=== PATIENT | female | born 1980 | race Two or more races ===

== ENCOUNTER 2016-09-11 17:51 | Emergency (ER) | payer MEDICAID ==
[~2016-09-11] VITALS: Ht 165.1 cm; Wt 79.0 kg
[~2016-09-11 17:51] MED LIST: ALPR1TAB2 PO
[2016-09-11 18:09] VITALS: Ht 165.1 cm; Wt 79.0 kg
[2016-09-11] MEDS ORDERED: IBUPROFEN 800 MG TAB PO ONE (19:00)
--- NOTE | 2016-09-11 19:29 | RADRPT ---
PROCEDURE: Shoulder x-ray CLINICAL INDICATION: Pain TECHNIQUE: Left shoulder 3 views COMPARISON: None FINDINGS: 3 views of the left shoulder demonstrate no displaced fracture. The humeral head articulates anatom ically with the glenoid fossa. The acromioclavicular articulation is within normal limits. Bones a re normally mineralized. Soft tissues are unremarkable. IMPRESSION: No acute fracture dislocation No significant degenerate change RPTAT: HH .Conner Jones MD, Date Time Electronically viewed and signed by .Conner Jones MD, on 09/11/2016 19:29 .W/
--- NOTE | 2016-09-11 19:35 | ERD ---
ER Documentation Chief Complaint Date/Time DATE: 09/11/16 TIME: 19:32 Chief Complaint left arm pain x 4 days HPI This is a 36-year-old female presents to the emergency room for evaluation of left arm pain for the past 4 days. She states it is worse with movement and describes her pain as achy pain. The patient denies any chest pain, shortness of breath or palpitations associated with this. She came to the emergency room for evaluation and denies any numbness or tingling or relieving factors for her pain. ROS All systems reviewed and are negative except as per history of present illness. Medications Home Meds Active Scripts Alprazolam* (Xanax*) 1 Mg Tab, 1 MG PO Q8H Y for ANXIETY, #20 TAB Prov:CHELLE BRUNNER NP 11/30/15 Reported Medications [none] Unknown Strength No Conflict Check 11/30/15 Allergies Allergies: Coded Allergies: No Known Drug Allergies (Verified Allergy, Mild, 04/05/09) PMhx/Soc Medical and Surgical Hx: pt denies Medical Hx History of Surgery: Yes (TUBAL LIGATION) Anesthesia Reaction: No Hx Neurological Disorder: No Hx Respiratory Disorders: No Hx Cardiac Disorders: No Hx Psychiatric Problems: No Hx Miscellaneous Medical Probl: No Hx Alcohol Use: Yes (OCCASIONAL) Hx Substance Use: No Hx Tobacco Use: No Smoking Status: Never smoker Physical Exam Vitals Vital Signs Date Time Temp Pulse Resp B/P Pulse Ox O2 Delivery O2 Flow Rate FiO2 09/11/16 18:09 98.3 90 18 140/85 99 Physical Exam Const: No acute distress Head: Atraumatic Eyes: Normal Conjunctiva ENT: Normal External Ears, Nose and Mouth. Neck: Full range of motion..~ No meningismus. Resp: Clear to auscultation bilaterally Cardio: Regular rate and rhythm, no murmurs Abd: Soft, non tender, non distended. Normal bowel sounds Skin: No petechiae or rashes Back: No midline or flank tenderness Ext: No cyanosis, or edema Musculoskeletal: Tenderness to palpation over the left deltoid Neur: Awake and alert Psych: Normal Mood and Affect Results 24 hrs Current Medications Medications (Trade) Dose Ordered Sig/David Route PRN Reason Start Time Stop Time Status Last Admin Dose Admin Ibuprofen (Motrin) 800 mg ONCE ONCE PO 5/18/17 19:00 09/11/16 19:01 DC 09/11/16 19:14 Procedures/MDM EKG: Rate/Rhythm: [Normal Sinus Rhythm] QRS, ST, T-waves: [No changes consistent w/ acute ischemia] Impression: [No evidence of ischemia or arrhythmia] X-ray Shoulder 3V Interpreted by me: Bones: [No fracture] Joints: [No dislocation] Foreign body: [None] This 36-year-old female presents to the emergency room for evaluation of left- sided shoulder pain. When I evaluated this patient she was hemodynamically stable, she was not hypoxic in no respiratory distress. I was able to palpate her left shoulder which did elicit the same pain that she was complaining about. EKG was obtained which shows normal sinus rhythm. X-ray does not reveal any acute fractures. I do feel this patient's symptoms are musculoskeletal in nature she is not complaining of any chest pain or any pain is radiating to her back. My suspicion for pulmonary embolism is low at this time. The patient has a heart score of 0 and will be discharged home with a prescription for Motrin for left shoulder pain. Departure Diagnosis: Primary Impression: Left shoulder pain Condition: Stable NADIYA PADRON DO September 11, 2016 19:35
[2016-09-11] MEDS ORDERED: IBUP800T25 PO (19:36)
== END 2016-09-11 19:44 | disposition home or self-care (01) ==
LOC: FTE 17:51
DX: M25.512 Pain in left shoulder (principal)
CPT/HCPCS: 73030; 93005; Z7502; Z7610

== ENCOUNTER 2017-02-12 09:15 | Emergency (ER) | payer MEDICAID ==
[~2017-02-12] VITALS: Ht 162.6 cm; Wt 78.0 kg
[~2017-02-12 09:15] MED LIST changes: +IBUP800T25 PO
[2017-02-12 09:21] VITALS: Ht 162.6 cm; Wt 78.0 kg
[2017-02-12] MEDS ORDERED: KETOROLAC 30 MG INJ IM STA (09:50)
[2017-02-12] MEDS ORDERED: HYDROCODONE/APAP (5/325) TAB PO ONE (10:00)
[2017-02-12] MEDS ORDERED: IBUP-1542 PO (12:33)
[2017-02-12] MEDS ORDERED: BACL10TA PO (12:33)
[2017-02-12 12:40] VITALS: BP 128/78; PULSE 66; RESP 18
--- NOTE | 2017-02-12 14:47 | ERD ---
ER Documentation Chief Complaint Chief Complaint lower back pain since yesterday, denies injury HPI This is a 37-year-old female presenting to emergency department for right-sided lower back pain starting last night. Patient rates pain 9/10 to right lower back that radiates down right leg. No injury or trauma to back. No heavy lifting. No flank pain. No chest pain. No shortness of breath or difficulty breathing. No chest pressure or palpitations. No nausea, vomiting or diarrhea. No dysuria or hematuria. 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 ROS All systems reviewed and are negative except as per history of present illness. Medications Home Meds Active Scripts Ibuprofen* (Motrin*) 600 Mg Tab, 600 MG PO Q6, #10 TAB Prov:JULY ANAYA NP 02/12/17 Baclofen* (Baclofen*) 10 Mg Tablet, 10 MG PO Q8, #10 TAB Prov:JULY ANAYA NP 02/12/17 Ibuprofen* (Motrin*) 800 Mg Tab, 800 MG PO Q6H Y for PAIN AND OR ELEVATED TEMP, #30 TAB Prov:NADIYA PADRON DO 09/11/16 Alprazolam* (Xanax*) 1 Mg Tab, 1 MG PO Q8H Y for ANXIETY, #20 TAB Prov:CHELLE BRUNNER NP 11/30/15 Reported Medications [none] Unknown Strength No Conflict Check 11/30/15 Allergies Allergies: Coded Allergies: No Known Drug Allergies (Verified Allergy, Mild, 04/05/09) PMhx/Soc History of Surgery: No Anesthesia Reaction: No Hx Neurological Disorder: No Hx Respiratory Disorders: No Hx Cardiac Disorders: No Hx Psychiatric Problems: No Hx Miscellaneous Medical Probl: Yes (TUBAL LIGATION) Hx Alcohol Use: Yes (OCCASIONAL) Hx Substance Use: No Hx Tobacco Use: No Smoking Status: Never smoker Physical Exam Vitals Vital Signs Date Time Temp Pulse Resp B/P Pulse Ox O2 Delivery O2 Flow Rate FiO2 02/12/17 12:40 66 18 128/78 100 02/12/17 09:21 97.1 76 18 127/78 100 Physical Exam Const: No acute distress, alert Head: Atraumatic Eyes: Normal Conjunctiva ENT: Normal External Ears, Nose and Mouth. Neck: Full range of motion..~ No meningismus. Resp: Clear to auscultation bilaterally. No wheezing, rhonchi or crackles. No stridor or labored breathing. Cardio: Regular rate and rhythm, no murmurs Abd: Soft, non tender, non distended. Normal bowel sounds Skin: No petechiae or rashes Back: No midline or flank tenderness. Positive straight leg raise to right side Ext: No cyanosis, or edema Neur: Awake and alert Psych: Normal Mood and Affect Results 24 hrs Current Medications Medications (Trade) Dose Ordered Sig/David Route PRN Reason Start Time Stop Time Status Last Admin Dose Admin Ketorolac Tromethamine (Toradol) 30 mg ONCE STAT IM 02/12/17 09:50 02/12/17 09:52 DC 02/12/17 10:06 Acetaminophen/ Hydrocodone Bitart ([place] (5/325)) 1 tab ONCE ONCE PO 02/12/17 10:00 02/12/17 10:01 DC 02/12/17 10:06 Procedures/MDM MDM: This is a 37-year-old female presenting to emergency department for acute onset right-sided lower back pain that radiates down right leg intermittently. Patient has positive straight leg raise to right leg on physical exam. No CVA tenderness. No flank or upper back pain. No chest pain, shortness breath or difficulty breathing. Vital signs are stable. Patient is afebrile. Patient states she took pain medicine from her son last night and had one episode of emesis at home. Denies abdominal pain. Denies nausea or vomiting. Patient given Toradol 30 mg IM and [place] 5/325 mg p.o. while in the ED. Patient states she did have 2 episodes of nonbloody nonbilious emesis while in the ED. No active vomiting now. Denies abdominal pain. Patient is afebrile and vital signs are stable. Low suspicion for cauda equina syndrome, acute fracture, acute dislocation, epidural abscess, malignancy and AAA rupture. Differential Diagnosis includes but is not limited to back strain, vertebral fracture, herniated disc, spinal stenosis and nephrolithiasis. Patient is appropriate for outpatient management will be given prescription for baclofen and ibuprofen. Instructed patient to follow-up with primary care provider in the next 2-3 days for reassessment and additional management. Return to ED for any high fever, chest pain, difficulty breathing, shortness breath, wheezing, vomiting, diarrhea, abdominal pain or any new or worsening symptoms. Patient verbalizes understanding. All questions answered at discharge. Tajik translation used during this encounter. Disclaimer: Inadvertent spelling and grammatical errors are likely due to EHR/ dictation software use and do not reflect on the overall quality of patient care. Also, please note that the electronic time recorded on this note does not necessarily reflect the actual time of the patient encounter. Departure Diagnosis: Primary Impression: Sciatica Laterality: right Qualified Code: M54.31 - Sciatica of right side Condition: Stable Patient Instructions: Understanding Sciatica, Back Pain W/ Sciatica [facility] Usted se galan hecho un examen mdico de control que le indica que no est en ramon condicin que requiera tratamiento urgente en el Departamento de Emergencia. Un estudio ms profundo y el tratamiento de owens condicin pueden esperar sin ningn riesgo hasta que usted sea atendida/o en el consultorio de owens mdico o ramon cl dawson. Es responsabilidad suya arreglar ramon miguel para el seguimiento del jesse. MANEJO DE CONDICIONES NO URGENTES EN EL FUTURO 1) Si usted tiene un mdico de atencin primaria: Usted debera llamar a owens mdico de atencin primaria antes de venir al departamento de emergencia. Despus de las horas de consultorio, owens doctor o owens asociado/a est disponible por telfono. El mdico o enfermero de jackie en el servicio telefnico puede asesorarle por hong medio para atender el problema, o jesse contrario se puede programar ramon miguel. 2) Si usted no tiene un mdico de atencin primaria: Llame al mdico o clnica de referencia que aparece abajo jojo las horas de consultorio para hacer ramon miguel para que le vean. CLINICAS: [facility] [phone] [address] [facility] [place] [id number] [phone] [place] [facility] [phone] [facility] [phone] [facility] [phone] [address] [facility]. [phone] [facility] () Usted se galan hecho un examen mdico de control que le indica que no est en ramon condicin que requiera tratamiento urgente en el Departamento de Emergencia. Un estudio ms profundo y el tratamiento de owens condicin pueden esperar sin ningn riesgo hasta que usted sea atendida/o en el consultorio de owens mdico o ramon cl dawson. Es responsabilidad suya arreglar ramon miguel para el seguimiento del jesse. MANEJO DE CONDICIONES NO URGENTES EN EL FUTURO 1) Si usted tiene un mdico de atencin primaria: Usted debera llamar a owens mdico de atencin primaria antes de venir al departamento de emergencia. Despus de las horas de consultorio, owens doctor o owens asociado/a est disponible por telfono. El mdico o enfermero de jackie en el servicio telefnico puede asesorarle por hong medio para atender el problema, o jesse contrario se puede programar ramon miguel. 2) Si usted no tiene un mdico de atencin primaria: Llame al mdico o condado institucions de referencia que aparece abajo jojo las horas de consultorio para hacer ramon miguel para que le vean. SI USTED NO PUEDE PAGAR PARA JANNA UN MEDICO puede ir a: [facility] [address] [place] [address] [facility] [address] [place] [address] [facility]GED WITH [facility] [address] [place] [address] [facility]A [facility] [address] [place], [place] [id number] Additional Instructions: Llame al doctor MAANA y zac ramon MIGUEL PARA DENTRO DE 2-3 [place].Dgale a la secretaria que nosotros le instruimos hacer esta miguel.Avise o llame si owens condicin se empeora antes de la miguel. Regresa aqui si peor o no mejor. Vuelva a Ed para cualquier fiebre julia, dolor en el pecho, dificultad para respirar, respiracin entrecortada, sibilancias, vmitos, diarrea, dolor abdominal o cualquier sntoma nuevo o empeoramiento. JULY ANAYA NP Feb 12, 2017 14:47
== END 2017-02-12 12:41 | disposition home or self-care (01) ==
LOC: FTE 09:15
DX: M54.41 Lumbago with sciatica, right side (principal)
CPT/HCPCS: 96372; J1885; Z7502; Z7610